=== PATIENT | female | born 2000 | race African-American/Black ===

== ENCOUNTER 2023-12-27 22:55 | Emergency (ER) | payer BC, SELFPAY ==
[2023-12-27 23:06] VITALS: BP 134/86
--- NOTE | 2023-12-27 23:19 | EDRN ---
this left around 1100 am and then returned again in the afternoon. Pt states that she has felt nauseated. Ptstates that about 45 mins ago it was going into L shoulder and back
--- NOTE | 2023-12-27 23:23 | ED.GENMED ---
History of Present Illness
General
Chief Complaint: Chest Pain
Source: patient
Exam Limitations: none
Time Seen by Provider: 12/27/23 23:13
History of Present Illness
History of Present Illness:
This is a 23 year old female that comes in with c/o chest pain. States that she was awakened last night at 4am with chest pain. States that this lasted till a bout 11 am and then it subsided. Then tonight about 1 hour ago she started again with
chest pain that goes up into the left shoulder and back. Denies the pain going into the arm. States that she was sick last month and then this went into bronchitis. States that she has a headache earlier but took Excedrin migraine and it is gone.
States that she did have a little nausea. Denies any fever, chills, SOB, abd pain, vomiting, diarrhea, dizziness, urinary burning.
Past History
Past History
ED Past Medical History: Other (Lupus)
ED Past Surgical History: Urological (Kidney biopsy) and Other (Adenoids removed)
Social History
Tobacco: Non-smoker
Alcohol: Occasional
Personal: Single
Living: with family
Review of Systems
Review of Systems
All Other Systems: ROS reviewed and negative except as documented in HPI and ROS
Constitutional: Reports no symptoms; Denies fever or chills
EENT: Reports no symptoms
Respiratory: Reports no symptoms; Denies cough or trouble breathing
Cardiac: Reports chest pain
ABD/GI: Reports nausea; Denies abdominal pain, vomiting or diarrhea
: Reports no symptoms; Denies dysuria, frequency or urgency
Musculoskeletal: Reports no symptoms
Skin: Reports no symptoms
Neurological: Reports no symptoms; Denies dizzy or headache
Psychiatric: Reports no symptoms
Phy Exam
General Physical Exam
General Presentation: well appearing and no apparent distress
General age: appears stated age
General Skin: warm and dry
General Habitus: normal
General Mental: alert
General Hydration: appears well hydrated
ENT Exam
ENT Exam: TM's normal, pharynx normal and neck supple
Eye Exam
Eye Exam: EOMI
Cardiovascular Exam
Cardiovascular Exam: regular rate/rhythm, no edema, no murmur and normal peripheral pulses
Pulmonary Exam
Pulmonary Exam: lungs clear, no respiratory distress, no rales, chest non tender, no crackles, no rhonchi, no wheezing and no cough
Gastrointestinal Exam
Gastrointestinal Exam: normal bowel sounds, non tender, soft, no organomegaly, no pulsatile mass and non distended
Musculoskeletal Exam
Musculoskeletal Exam: full ROM and no edema
Skin Exam
Skin Exam: normal color, warm/dry, no rash and no petechia
Psychiatric Exam
Psychiatric Exam: normal mood/affect
Scores
Heart Score for Chest Pain Patients
STEMI patient?: No
History: Slightly or Non-Suspicious
ECG: Normal
Age: </= 45 years
Risk Factors: No Risk Factors
Troponin: </= Normal Limit
Heart Score for Chest Pain Patients: 0
Heart Score Risk: 2.5% MACE over next 6 weeks
Course
Orders/Labs/Results
Orders:
Orders
12/27/23 22:56
EKG [Electrocardiogram (*1)] Urgent
Reason for Study: Chest Pain
EKG- Treatment ONCE
12/27/23 23:23
Test Result ONCE
CR Chest - 2 Views Urgent
Comment:
Reason For Exam: Chest pain
12/27/23 23:34
Complete Blood Count/With Diff Urgent
Comprehensive Metabolic Panel Urgent
HCG, Serum Qualitative Screen Urgent
Troponin I Urgent
12/28/23 00:47
EKG- Treatment ONCE
12/28/23 01:50
Troponin I Urgent
12/28/23 02:30
Electrocardiogram (*1) Urgent
Reason for Study: Chest Pain
Other Reason for Exam: repeat with Troponin
Abnormal Lab Results
12/27/23
23:34
Hgb 10.8 L g/dL
(12.0-16.0)
Hct 32.6 L %
(37.0-47.0)
MCV 77.4 L fL
(81.0-99.0)
MCH 25.7 L pg
(27.0-31.0)
MPV 11.3 H fL
(7.4-10.4)
Glucose 104 H mg/dl
(70-99)
12/27/23 23:34
12/27/23 23:34
H/H low. Anemia, Glucose nonfasting. Troponin <0.012, HCG negative.
second Troponin <0.012
Vital Signs
Initial and Last Documented VS:
Initial Vital Signs
Temp Pulse Resp BP Pulse Ox
99.4 F 81 22 134/86 99
12/27/23 23:06 12/27/23 23:06 12/27/23 23:06 12/27/23 23:06 12/27/23 23:06
Last Documented Vital Signs
Temp Pulse Resp BP Pulse Ox
99.4 F 80 15 139/84 100
12/27/23 23:06 12/28/23 01:00 12/28/23 01:00 12/28/23 01:00 12/28/23 01:00
MDM/Problems Addressed
Differential Diagnosis Includes:
Coronary syndrome. PNA,
MDM/Problems Addressed:
This is a 23 year old female that comes in with c/o chest pain. States that her chest pain started at 4am and went to 11am and then it went away. then it came back about 1 hour ago and she also had left shoulder and back pain. States that she
recently had bronchitis and is till getting over this.
Will check labs, Chest x-ray.
Repeat ECG: rate 78, NSr, Normal axis, Normal QRS, Negative for ischemia.
Chronic conditions affecting care:
Lupus
*Radiology
Radiology exam reviewed: preliminary read by ED provider (Chest- negative for active disease)
*Pulse Oximetry
Patient hypoxic: no
*EKG
Interpreted by ED Provider?: Yes
Heart Rate: 77
Rate: normal
Rhythm: sinus
[place]: normal axis
Interval: normal interval
QRS Pattern: normal QRS
Ischemia: no ischemia
*Critical Care Note
Total Time (30-74mins, 75-104mins- exclusive of procedures): Not Applicable
ED Attending Note
-
Portions of this chart may have been created with voice recognition software.� Occasional wrong word or��sound alike� substitutions may have occurred due to the inherent limitations of voice recognition software.
Discharge Plan
Departure
Patient Disposition: Home (Routine Discharge)
Date of Disposition: 12/28/23
Time of Disposition: 02:28
Patient with high blood pressure during this ER visit?: Yes
Condition: Good
Covid-19: Not Applicable
Discharge Problem:
Chest pain
Instructions: Chest Pain PCP Follow Up, BLOOD PRESSURE
Referrals:
Leighann Taylor, [Family Provider] - Follow up in 2-3 days
Activity Restrictions/Additional Instructions:
As discussed, your blood work shows that you are anemic. Your chest x-ray is normal along with both Troponin which are specific for the heart. Please increase your water intake to 8-8oz glasses daily. Follow up with the family doctor in the next 2-
3days for recheck. You may use Tylenol 1000mg every 6 hours for pain and alternate with Ibuprofen 600mg every 6 hours with food for pain. IF YOU HAVE INCREASED OR CHANGING PAIN, OR YOU HAVE ANY OTHER CONCERNS PLEASE RETURN TO THE EMERGENCY ROOM.
Interventions
Interventions:
*Risk Screen - Suicide Last Done: 12/27/23 23:17
*General Assessment Last Done: 12/27/23 23:17
*Neglect/Abuse Screening Last Done: 12/27/23 23:17
ED- Fall Risk Assessment Last Done: 12/27/23 23:17
*ED COVID-19 Vaccine History Last Done: 12/27/23 23:17
ED- Cardiac Assessment Last Done: 12/27/23 23:17
Discharge Date and Time
Print Language: SINHALA
[2023-12-27 23:41] VITALS: BP 131/72
[2023-12-28 00:05] LABS: % Basophils 0.1 % (0-2); % Eosinophils 1.8 % (0-6); % Immature Granulocytes 0.1 % (0-0.5); % Lymphocytes 40.3 % (20.5-51.1); % Neutrophils 50.7 % (42.2-75.2); Absolute Eosinophils 0.1 10^3/uL (0-0.7); Absolute Lymphocytes 2.8 10^3/uL (1.2-3.4); Absolute Monocytes 0.5 10^3/uL (0.1-0.6); Absolute Neutrophils 3.6 10^3/uL (1.4-6.5); Hematocrit 32.6 % (37.0-47.0); Hemoglobin 10.8 g/dL (12.0-16.0); Mean Corp Hgb Conc. 33.1 g/dL (33.0-37.0); Mean Corpuscular Hgb 25.7 pg (27.0-31.0); Mean Corpuscular Volume 77.4 fL (81.0-99.0); Mean Platelet Volume 11.3 fL (7.4-10.4); Nucleated Red Blood Cells % 0 %; Platelet Count 257 10^3/uL (130-400); Red Blood Cell Count 4.21 10^6/uL (4.20-5.40); Red Cell Dist. Width 13.8 % (11.5-14.5)
[2023-12-28 00:19] LABS: HCG, Serum Qualitative Screen Negative
[2023-12-28 00:24] LABS: ALT (SGPT) 12 U/L (0-35); AST (SGOT) 18 U/L (14-36); Alkaline Phosphatase 76 U/L (38-126); Blood Urea Nitrogen 12 mg/dl (7-17); Calcium 9.6 mg/dl (8.4-10.2); Carbon Dioxide 25 mmol/L (22-30); Chloride 104 mmol/L (98-107); Glucose 104 mg/dl (70-99); Potassium 3.5 mmol/L (3.5-5.1); Sodium 141 mmol/L (135-145); Total Bilirubin 0.2 mg/dl (0.2-1.3); Total Protein 7.1 g/dl (6.3-8.2); eGFR > 60.00
[2023-12-28 00:40] LABS: Troponin I < 0.012 ng/ml
[2023-12-28 00:45] VITALS: BP 139/77
[2023-12-28 01:00] VITALS: BP 139/84
[2023-12-28 02:00] VITALS: BP 142/77
[2023-12-28 02:25] LABS: Troponin I < 0.012 ng/ml
== END 2023-12-28 02:45 | disposition home or self-care (01) ==
LOC: EMR 22:55
PROVIDERS: Clinical Nurse Specialist Family Health; EMERGENCY PHYSICIAN Emergency Medicine; FAMILY PHYSICIAN Family Medicine
DX: R07.89 Other chest pain (principal); M54.9 Dorsalgia, unspecified; M25.512 Pain in left shoulder; R11.0 Nausea; D64.9 Anemia, unspecified; J20.9 Acute bronchitis, unspecified; R03.0 Elevated blood-pressure reading, without diagnosis of hypertension; M32.9 Systemic lupus erythematosus, unspecified
CPT/HCPCS: 99284; 71046; 80053; 84484; 84703; 85025; 93005